=== PATIENT | male | born 1995 | race Caucasian/White ===

== ENCOUNTER 2016-12-19 21:48 | Emergency (ER) | payer OTHER ==
--- NOTE | ~2016-12-19 | CT71 ---
[facility] A Service [facility] RADIOLOGY TEXT RESULTS PATIENT: DEMETRIO SOUZA LOCATION: SED : 95 UNIT #: [id number] AGE: [address]: MERCEDES GIL SEX: M ORDER DR: [id number] [place] [id number] E MR#: [id number] Acc #: [id number] NAME: DEMETRIO SOUZA. : 1995 SEX: M STUDY DATE/TIME: 12/19/2016 22:18 UNIT: SED ROOM: STUDY DESCRIPTION: CT Head Wo Contrast Attending Physician: Mercedes Gil Ordering Physician: Physician Non-Staff Primary Care Physician: [facility] MEDICAL IMAGING REPORT This report is preliminary unless electronic signature is present. EXAM CT head, noncontrast, 12/19/2016 HISTORY 21-year-old male in the ED complaining of 24-hour history of left side headache. History of migraines. TECHNIQUE CT examination of the head was performed without IV contrast. This CT exam was performed with one or more of the following radiation dose reduction techniques: automatic exposure control, adjustment of mA and/or kV according to patient size, and iterative reconstruction. FINDINGS The images are markedly degraded by patient motion artifact. The entire study was repeated with modest improvement, and both sets of images are reviewed. The examination is grossly negative. No visible intracranial hemorrhage, mass, mass effect, cerebral edema or hydrocephalus. IMPRESSION 1. The exam is markedly compromised by patient motion artifact. 2. The study is grossly negative. No acute intracranial abnormality is visible. 1. Dictated by... Daniel Cedeño M.D. THIS IS AN ELECTRONICALLY VERIFIED REPORT Daniel Cedeño M.D. at 12/20/2016 9:53 PM [facility] A Service [facility] RADIOLOGY TEXT RESULTS PATIENT: DEMETRIO SOUZA LOCATION: SED : 95 UNIT #: [id number] AGE: [address]: MERCEDES GIL SEX: M ORDER DR: No TD: 12/20/2016 06:34 JOB #: [id number] MEDICAL IMAGING REPORT Page 1 of 1
[~2016-12-19 21:48] MED LIST: ACID REFLUX; BIAXIN PO; CLARITIN10 M3 PO; METRONIDAZOLE PO; NO MEDICATIONS; PHENERGAN25 M1 PO; PHENERGAN25 MG PO; PRILOSEC PO; PRILOSEC20 MG PO; VOLTAREN75 MG PO; ZOFRAN ODT4 MG PO; ZOFRAN ODT4 MG/UDTAB PO
[2016-12-19 22:19] LABS: BASOPHIL% 0.3 % (0-2.5); EOSINOPHIL% 0.2 % (0.0-7.0); HEMATOCRIT 45.6 % (38.0-50.0); HEMOGLOBIN 15.2 gm/dL (13.0-16.0); LYMPHOCYTE% 7.1 % (17.0-45.0); MEAN CELL VOLUME 91.3 FL (83-96); MEAN CORPUSCULAR HEMOGLOBIN 30.5 PG (28-34); MEAN CORPUSCULAR HGB CONC 33.4 g/dL (30-36); MEAN PLATELET VOLUME 8.1 FL (6.5-11.5); MONOCYTE# 0.4 X10e3 (0-1.0); MONOCYTE% 2.7 % (3.0-12.0); NEUTROPHIL# 12.2 X10e3 (1.5-7.1); NEUTROPHIL% 89.7 % (40-75); PLATELET COUNT 200 X10e3 (140-420); RED CELL DISTRIBUTION WIDTH 12.9 % (11.0-15.5); WHITE BLOOD COUNT 13.6 X10e3 (4.0-10.5)
[2016-12-19 22:21] LABS: DIFF IND NO
[2016-12-19 22:35] LABS: BLOOD UREA NITROGEN 15 mg/dL (9-23); CALCIUM SERUM 9.5 mg/dL (8.4-10.2); CARBON DIOXIDE 24 mmol/L (22-31); CHLORIDE 103 mmol/L (100-111); CREATININE SERUM 0.6 mg/dL (0.6-1.4); GLOM FILT RATE Estimated ABOVE60 mL/min (>60); GLUCOSE FASTING 112 mg/dL (70-110); POTASSIUM 3.2 mmol/L (3.5-5.1); SODIUM 136 mmol/L (135-145)
== END 2016-12-20 00:31 | disposition home or self-care (01) ==
LOC: SED 21:48
PROVIDERS: Physician Assistant
DX: R51 Headache (principal); F17.210 Nicotine dependence, cigarettes, uncomplicated
CPT/HCPCS: 36415; 70450; 80048; 85025; 96361; 96374; 96375; 99284; J1200; J2765